=== PATIENT | male | born 1960 | race Two or more races ===

== ENCOUNTER 2021-12-12 19:34 | Emergency (ER) | payer MEDICAID ==
[2021-12-12] MEDS ORDERED: Iopamidol 612 MG/ML 100 ML Bottle IVPUSH ONE (19:45)
[2021-12-12 20:25] LABS: PTT,PARTIAL THROMBOPLSTIN TIME 24.5 SEC (22.0-34.0)
[2021-12-12 20:29] LABS: ANION GAP 13.6 mEq/L (7-13); CHLORIDE,CL 96 mmol/L (98-107); SODIUM,NA 133 mmol/L (136-145)
[2021-12-12 20:47] LABS: ESTIMATED GFR 104 mL/min (>=60)
[2021-12-13] MEDS ORDERED: cefTRIAXone 2 GM in Sodium Chloride 0.9% 100 ML IV ONE (00:17)
== END 2021-12-13 02:43 ==
LOC: DL.ED 19:34
DX: I69.951 Hemiplegia and hemiparesis following unspecified cerebrovascular disease affecting right dominant side (principal); N30.00 Acute cystitis without hematuria; H70.003 Acute mastoiditis without complications, bilateral; Z20.822 Contact with and (suspected) exposure to COVID-19; W06.XXXA Fall from bed, initial encounter
CPT/HCPCS: 36415; 70450; 71260; 72125; 74177; 80053; 81001; 85025; 85610; 85730; 87086; 87088; 87186; 87635; 96365; 99285; J0696; U0002

== ENCOUNTER 2024-01-05 17:39 | Emergency (ER) | payer MEDICAID ==
[2024-01-05] MEDS ORDERED: Sodium Chloride 0.9% 10 ML Syringe FLUSH PRN (17:47)
[2024-01-05 18:18] LABS: HEMATOCRIT 46.5 % (40.0-54.0); HEMOGLOBIN 15.3 g/dL (14.0-18.0); MEAN CORPUSCULAR HEMOGLOBIN 30.3 pg (27.0-34.0); MEAN CORPUSCULAR HGB CONC 32.9 g/dL (33.0-35.0); MEAN CORPUSCULAR VOLUME 92.1 fL (80-100); PLATELET COUNT,PLT 324 10^3/uL (150-450); RED BLOOD CELL COUNT 5.05 10^6/uL (4.6-6.2); WHITE BLOOD CELL COUNT,WBC 16.2 10^3/uL (5.0-10.0)
[2024-01-05 18:23] LABS: BASOPHILS PERCENT AUTO 0.3 % (0.0-1.0); EOSINOPHILS PERCENT AUTO 0.2 % (1.0-3.0); LYMPHOCYTES PERCENT AUTO 10.3 % (20.5-50.1); MONOCYTES PERCENT AUTO 8.8 % (2-8); NEUTROPHILS PERCENT AUTO 80.4 % (42.2-75.2)
[2024-01-05 18:36] LABS: A/G RATIO 0.7; ALANINE AMINOTRANSFERASE,ALT 31 U/L (16-63); ALBUMIN 3.6 g/dL (3.4-5.0); ALKALINE PHOSPHATASE 112 U/L (46-116); AMYLASE 33 U/L (25-115); ANION GAP 13.5 mEq/L (7-13); ASPARTATE AMNIOTRANSFERASE,AST 16 U/L (15-37); BILIRUBIN TOTAL 1.2 mg/dL (0.2-1.0); BLOOD UREA NITROGEN,BUN 13 mg/dL (7-18); C-REACTIVE PROTEIN 3.74 ng/dL (<=0.50); CALCIUM 8.9 mg/dL (8.5-10.1); CARBON DIOXIDE,CO2 30 mmol/L (21-32); CHLORIDE,CL 98 mmol/L (98-107); CREATININE 0.81 mg/dL (0.70-1.30); EST CRCL DRUG DOSING (CG) 105.12 mL/min; GLUCOSE RANDOM 255 mg/dL (70-99); LIPASE 28 U/L (16-77); POTASSIUM,K 5.5 mmol/L (3.5-5.1); PROTEIN TOTAL,TP 8.5 g/dL (6.4-8.2); SODIUM,NA 136 mmol/L (136-145)
[2024-01-05 18:38] LABS: ESTIMATED GFR 100 mL/min (>=60)
[2024-01-05 18:40] LABS: LACTIC ACID 2.9 mmol/L (0.4-2.0)
[2024-01-05] MEDS: Iopamidol 612 MG/ML 100 ML Bottle IVPUSH ONE (18:40)
[2024-01-05] MEDS: Sodium Chloride 0.9% 1,000 ML IV ONE ×2 (18:44→20:06)
[2024-01-05 18:48] LABS: PTT,PARTIAL THROMBOPLSTIN TIME 24.6 SEC (22.0-34.0)
[2024-01-05 18:57] LABS: INR 0.9 (0.9-1.2); PROTHROMBIN TIME 9.6 SEC (9.0-12.0)
[2024-01-05 19:06] LABS: APPEARANCE,URINE CLEAR (CLEAR); BILIRUBIN,URINE NEGATIVE (NEGATIVE); COLOR,URINE YELLOW (YELLOW); GLUCOSE,URINE 500 (NEGATIVE); KETONES,URINE TRACE (NEGATIVE); LEUKOCYTE ESTERASE,URINE NEGATIVE (NEGATIVE); NITRITE,URINE NEGATIVE (NEGATIVE); OCCULT BLOOD,URINE TRACE-INTACT (NEGATIVE); PH,URINE 5.5 (5.0-9.0); PROTEIN,URINE NEGATIVE (NEGATIVE); UROBILINOGEN,URINE 0.2 mg/dL (0.2-1.0)
[2024-01-05 19:40] LABS: BACTERIA,URINE FEW /HPF (0-FEW/HPF); EPITHELIAL CELLS,URINE FEW /HPF (NOT SEEN); RBC,URINE 20-30 /HPF (0-5); WBC,URINE 0-5 /HPF (0-5/HPF)
[2024-01-05 20:10] LABS: BAND PERCENT MAN 4 %; LYMPHOCYTES PERCENT MAN 8 % (20-50); MONOCYTES PERCENT MAN 4 % (2-8); SEG NEUTROPHILS PERCENT MAN 84 % (42-75)
[2024-01-05] MEDS: Cefepime 2 GM Vial IVPUSH ONE (20:10)
== END 2024-01-05 20:50 ==
LOC: DL.ED 17:39
DX: M79.81 Nontraumatic hematoma of soft tissue (principal); J18.9 Pneumonia, unspecified organism; E87.5 Hyperkalemia; R74.02 Elevation of levels of lactic acid dehydrogenase [LDH]; E11.9 Type 2 diabetes mellitus without complications; I10 Essential (primary) hypertension; J44.9 Chronic obstructive pulmonary disease, unspecified; Z88.5 Allergy status to narcotic agent; Z88.0 Allergy status to penicillin
CPT/HCPCS: 36415; 51702; 71045; 74177; 80053; 81001; 82140; 82150; 83605; 83690; 84145; 85025; 85610; 85730; 86140; 87040; 99285; J0692; J7030; Q9967